=== PATIENT | male | born 1995 | race Caucasian/White ===

== ENCOUNTER 2018-06-20 09:20 | Inpatient (IN) | payer OTHER ==
[2018-06-20 09:35] VITALS: BMI 29.5
--- NOTE | 2018-06-20 10:02 | HP ---
COWS - Scale Resting Pulse: 0= [place] 80 or Below Sweatin= Chills/Flushing Restless Observation: 1= Difficult to Sit Still Pupil Size: 1= Pupils >than Normal Bone or Joint Aches: 2= Severe Diffuse Aches Runny Nose/ Eye Tearin= Runny Nose/Eyes GI Upset > 30mins: 2= Nausea/Diarrhea Tremor Observation: 2= Slight Tremor Visible Yawning Observation: 1= 1-2x During Session Anxiety or Irritability: 2=Irritable/Anxious Goose Flesh Skin: 0=Smooth Skin COWS Score: 14 CIWA Score - Admission Criteria OASAS Guidelines: Admission for Medically Managed Detox: Requires at least one of the followin. CIWA greater than 12 2. Seizures within the past 24 hours 3. Delirium tremens within the past 24 hours 4. Hallucinations within the past 24 hours 5. Acute intervention needed for co occurring medical disorder 6. Acute intervention needed for co occurring psychiatric disorder 7. Severe withdrawal that cannot be handled at a lower level of care (continued vomiting, continued diarrhea, abnormal vital signs) requiring intravenous medication and/or fluids 8. Admission ROS S - HPI Chief Complaint: i need help to stop oxycontin,crack,k2 Allergies/Adverse Reactions: Allergies Allergy/AdvReac Type Severity Reaction Status Date / Time No Known Allergies Allergy Verified 06/20/18 09:54 History of Present Illness: this 23 years old male with oxycontin,crack dependence,k2 dependence,seeking detox,withdrawal symptom,last detox [facility] 04/13 for 7 days,completd, went to rehab [facility] for 2 weeks on suboxone but left the program in 04/13 bipolar disorder,adhd,ptsd non compliance,no medication nicotine dependence longest period of sobriety 3 months Exam Limitations: No Limitations - Ebola screening Have you traveled outside of the country in the last 21 days: No Have you been sick,other than usual withdrawal symptoms: No - Review of Systems Constitutional: Loss of Appetite, Malaise, Night Sweats, Changes in sleep, Weakness EENT: reports: Tearing, Nose Congestion Respiratory: reports: No Symptoms reported Cardiac: reports: No Symptoms Reported GI: reports: Nausea, Poor Appetite, Abdominal cramping : reports: No Symptoms Reported Musculoskeletal: reports: Back Pain, Joint Pain, Muscle Pain Integumentary: reports: Dryness Neuro: reports: Headache, Tremors Endocrine: reports: No Symptoms Reported Hematology: reports: No Symptoms Reported Psychiatric: reports: No Sypmtoms Reported, Judgement Intact, Mood/Affect Appropiate, Orientated x3, other (bipolar disorder,ptsd,adhd) Patient History - Patient Medical History Hx Anemia: No Hx Asthma: No Hx Chronic Obstructive Pulmonary Disease (COPD): No Hx Cancer: No Hx Cardiac Disorders: No Hx Congestive Heart Failure: No Hx Hypertension: No Hx Hypercholesterolemia: No Hx Pacemaker: No HX Cerebrovascular Accident: No Hx Seizures: No Hx Dementia: No Hx Diabetes: No Hx Gastrointestinal Disorders: No Hx Liver Disease: No Hx Genitourinary Disorders: No Hx Sexually Transmitted Disorders: No Hx Renal Disease (ESRD): No Hx Thyroid Disease: No Hx Human Immunodeficiency Virus (HIV): No (last 04/13 negative) Hx Hepatitis C: No Hx Depression: No Hx Suicide Attempt: Yes (overdose at age of 13) Hx Bipolar Disorder: Yes ([place]) Hx Schizophrenia: No Other Medical History: ptsd,no suicidal,no homicidal - Patient Surgical History Past Surgical History: No - PPD History Previous Implant?: No Documented Results: Negative w/o proof Implanted On Prior [facility] Admission?: No PPD to be Administered?: Yes - Smoking Cessation Smoking history: Current every day smoker Have you smoked in the past 12 months: Yes Aproximately how many cigarettes per day: 4 Hx Chewing Tobacco Use: No Initiated information on smoking cessation: Yes 'Breaking Loose' booklet given: 06/20/18 - Substance & Tx. History Hx Alcohol Use: No Hx Substance Use: Yes Substance Use Type: Cocaine, Opiates - Substances Abused Oxycontin Frequency: 3-6 times per week Amount used: 160MG Age of first use: 18 Date of Last Use: 06/18/18 Crack Route: Smoking Frequency: 1-2 times per week Amount used: $60 Age of first use: 20 Date of Last Use: 06/19/18 k2 Route: Smoking Frequency: Daily Amount used: 10$ Age of first use: 13 Date of Last Use: 06/19/18 Family Disease History - Family Disease History Family Disease History: Other: Father (dsa,alcohol,sober), Mother (dsa,lcohol, sober) Admission Physical Exam BHS - Vital Signs Vital Signs: Vital Signs - 24 hr 06/20/18 09:33 Temperature 96.1 F L Pulse Rate 63 Respiratory 18 Rate Blood Pressure 133/83 - Physical General Appearance: Yes: Moderate Distress, Tremorous, Irritable, Sweating, Anxious HEENTM: Yes: Normal ENT Inspection, [place], Pharynx Normal Respiratory: Yes: Within Normal Limits, Lungs Clear, Normal Breath Sounds Neck: Yes: Within Normal Limits, Supple, Trachea in good position Breast: Yes: Within Normal Limits Cardiology: Yes: Within Normal Limits, Regular Rhythm, Regular Rate, S1, S2 Abdominal: Yes: Within Normal Limits, Normal Bowel Sounds, Non Tender, Flat, Soft Genitourinary: Yes: Within Normal Limits Back: Yes: Within Normal Limits, Normal Inspection, CVA Tenderness, Muscle Spasm Musculoskeletal: Yes: full range of Motion, Back pain, Muscle Pain Extremities: Yes: Tremors Neurological: Yes: Within Normal Limits, hem marker II-XII NML intact, Alert, Motor Strength 5/5 Integumentary: Yes: Dry Lymphatic: Yes: Within Normal Limits - Diagnostic (1) Opioid dependence with withdrawal Current Visit: Yes Status: Acute (2) Cocaine dependence Current Visit: Yes Status: Chronic (3) Bipolar disorder Current Visit: Yes Status: Chronic (4) PTSD (post-traumatic stress disorder) Current Visit: Yes Status: Chronic (5) ADHD Current Visit: Yes Status: Chronic (6) Nicotine dependence Current Visit: Yes Status: Chronic Cleared for Admission [facility] - Detox or Rehab [facility] Level of Care: Medically Managed Detox Regimen/Protocol: Methadone [facility] Breath Alcohol Content Breath Alcohol Content: 0 Urine Drug Screen - Results Drug Screen Negative: No Urine Drug Screen Results: PEG-Cocaine, OXY-Oxycodone
[2018-06-20] MEDS ORDERED: METHADONE HCL 10 MG TABLET (FOR DETOX USE ONLY) PO ONE ×2 (10:18→23:00)
[2018-06-20] MEDS ORDERED: ACETAMINOPHEN 325 MG TABLET (FP) PO PRN (10:19)
[2018-06-20] MEDS ORDERED: P-EPHED 60MG/TRIPROLIDI 2.5MG TABLET PO PRN (10:19)
[2018-06-20] MEDS ORDERED: guaiFENesin/D-METHORPHAN HB 10 ML UNIT-DOSE CUPS PO PRN (10:19)
[2018-06-20] MEDS ORDERED: MAGNESIUM HYDROX 2400MG/30ML ORAL SUSPENSION 30 ML CUP PO PRN (10:19)
[2018-06-20] MEDS ORDERED: MAG HYDROX/AL HYDROX/SIMETH 30 ML UNIT-DOSE CUP PO PRN (10:19)
[2018-06-20] MEDS ORDERED: MAGNESIUM CITRATE 300 ML BOTTLE PO PRN (10:19)
[2018-06-20] MEDS ORDERED: MENTHOL/PHENOL 1 EACH UD MM PRN (10:19)
[2018-06-20] MEDS ORDERED: LOPERAMIDE HCL 2 MG CAPSULE PO PRN (10:19)
[2018-06-20] MEDS: diazePAM 5 MG TABLET PO PRN ×3 (11:10→22:20)
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
[2018-06-20] MEDS: IBUPROFEN 400 MG TABLET (FP) PO PRN (16:46)
[2018-06-20 21:08] LABS: URINE APPEARANCE TURBID; URINE BILIRUBIN NEGATIVE (<2.0 mg/dL); URINE COLOR AMBER; URINE GLUCOSE (UA) NEGATIVE (NEGATIVE); URINE KETONE NEGATIVE (NEGATIVE); URINE LEUK ESTERASE NEGATIVE (NEGATIVE); URINE NITRITE NEGATIVE (NEGATIVE); URINE PROTEIN NEGATIVE (NEGATIVE); URINE UROBILINOGEN NEGATIVE mg/dL (0.2-1.0)
[2018-06-20] MEDS: THIAMINE HCL 100 MG TABLET (FP) PO SCH (22:20)
[2018-06-20] MEDS: MELATONIN 5 MG TABLETS PO PRN (22:21)
[2018-06-21] MEDS: hydrOXYzine PAMOATE 50 MG CAPSULE (FP) PO PRN (01:58)
[2018-06-21] MEDS: IBUPROFEN 400 MG TABLET (FP) PO PRN ×2 (02:40→10:10)
[2018-06-21] MEDS: diazePAM 5 MG TABLET PO PRN ×4 (02:41→22:28)
[2018-06-21] MEDS ORDERED: METHADONE HCL 10 MG TABLET (FOR DETOX USE ONLY) PO ONE (10:00)
[2018-06-21] MEDS: PRENATAL VITAMINS W/ FOLIC ACID TABLET (FP) PO SCH (10:11)
[2018-06-21 10:32] LABS: HEMATOCRIT 39.2 % (35.4-49); HEMOGLOBIN 12.6 GM/dL (11.7-16.9); MCH 27.6 pg (25.7-33.7); MEAN CELL VOLUME 86.3 fl (80-96); MEAN PLT VOLUME 9.8 fl (7.5-11.1); PLATELET COUNT 203 K/MM3 (134-434); RBC 4.54 M/mm3 (4.00-5.60); RDW 14.3 % (11.9-15.9); WHITE BLOOD COUNT 5.1 K/mm3 (4.0-10.0)
--- NOTE | 2018-06-21 10:36 | PN ---
S COWS - Scale Resting Pulse: 0= [place] 80 or Below Sweatin= Chills/Flushing Restless Observation: 1= Difficult to Sit Still Pupil Size: 1= Pupils >than Normal Bone or Joint Aches: 2= Severe Diffuse Aches Runny Nose/ Eye Tearin= Runny Nose/Eyes GI Upset > 30mins: 1= Stomach Cramp Tremor Observation of Outstretched Hands: 1= Tremor [place], Not Seen Yawning Observation: 1= 1-2x During Session Anxiety or Irritability: 1=Feels Anxious/Irritable Goose Flesh Skin: 0=Smooth Skin COWS Score: 11 S Progress Note (SOAP) Subjective: sweat tremor constipation anxiety restlessness Objective: 06/21/18 10:42 Vital Signs Temperature 96.4 F L 06/21/18 09:10 Pulse Rate 50 L 06/21/18 09:10 Respiratory Rate 18 06/21/18 09:10 Blood Pressure 98/62 06/21/18 09:10 O2 Sat by Pulse Oximetry (%) Laboratory Last Values WBC 5.1 K/mm3 (4.0-10.0) 06/21/18 07:00 RBC 4.54 M/mm3 (4.00-5.60) 06/21/18 07:00 Hgb 12.6 GM/dL (11.7-16.9) 06/21/18 07:00 Hct 39.2 % (35.4-49) 06/21/18 07:00 MCV 86.3 fl (80-96) 06/21/18 07:00 MCH 27.6 pg (25.7-33.7) 06/21/18 07:00 MCHC 32.0 g/dl (32.0-35.9) 06/21/18 07:00 RDW 14.3 % (11.9-15.9) 06/21/18 07:00 Plt Count 203 K/MM3 (134-434) 06/21/18 07:00 MPV 9.8 fl (7.5-11.1) 06/21/18 07:00 Urine Color Nanda 06/20/18 19:00 Urine Appearance Turbid 06/20/18 19:00 Urine pH 6.0 (5.0-8.0) 06/20/18 19:00 Ur Specific [place] 1.025 (1.010-1.035) 06/20/18 19:00 Urine Protein Negative (NEGATIVE) 06/20/18 19:00 Urine Glucose (UA) Negative (NEGATIVE) 06/20/18 19:00 Urine Ketones Negative (NEGATIVE) 06/20/18 19:00 Urine Blood Negative (NEGATIVE) 06/20/18 19:00 Urine Nitrite Negative (NEGATIVE) 06/20/18 19:00 Urine Bilirubin Negative (<2.0 mg/dL) 06/20/18 19:00 Urine Urobilinogen Negative mg/dL (0.2-1.0) 06/20/18 19:00 Ur Leukocyte Esterase Negative (NEGATIVE) 06/20/18 19:00 lab noted Assessment: 06/21/18 10:42 withdrawal sx Plan: continue detox
--- NOTE | 2018-06-21 11:00 | EKG ---
Test Reason : Blood Pressure : / mmHG Vent. Rate : 069 BPM Atrial Rate : 069 BPM P-R Int : 158 ms QRS Dur : 092 ms QT Int : 414 ms P-R-T Axes : 037 037 034 degrees QTc Int : 443 ms NORMAL SINUS RHYTHM NORMAL ECG NO PREVIOUS ECGS AVAILABLE Confirmed by GORGE BIRD, ELLEN ([id number]) on 06/21/2018 11:00:31 AM Referred By: Akilah Mercado Confirmed By:ELLEN PENNINGTON MD
[2018-06-21 11:11] LABS: ALBUMIN 3.4 g/dl (3.4-5.0); ALK PHOS 95 U/L (45-117); ANION GAP 7 MMOL/L (8-16); BILIRUBIN,TOTAL 0.2 mg/dL (0.2-1); BLOOD UREA NITROGEN 14 mg/dL (7-18); CALCIUM 8.5 mg/dL (8.5-10.1); CHLORIDE 103 mmol/L (98-107); CO2 30 mmol/L (21-32); CREATININE 0.8 mg/dL (0.55-1.3); GLUCOSE,RANDOM 95 mg/dL (74-106); POTASSIUM 4.1 mmol/L (3.5-5.1); SGOT/AST 20 U/L (15-37); SGPT/ALT 28 U/L (13-61); SODIUM 141 mmol/L (136-145); TOT PROT 6.2 g/dl (6.4-8.2)
[2018-06-21] MEDS: GABAPENTIN 300 MG CAPSULE (FP) PO SCH ×2 (15:02→22:28)
[2018-06-21] MEDS: THIAMINE HCL 100 MG TABLET (FP) PO SCH (22:28)
[2018-06-21] MEDS: MELATONIN 5 MG TABLETS PO PRN (22:29)
[2018-06-22] MEDS: GABAPENTIN 300 MG CAPSULE (FP) PO SCH ×3 (05:50→22:10)
[2018-06-22] MEDS: diazePAM 5 MG TABLET PO PRN ×5 (05:50→22:10)
[2018-06-22] MEDS: IBUPROFEN 400 MG TABLET (FP) PO PRN ×3 (05:59→22:11)
[2018-06-22] MEDS ORDERED: METHADONE HCL 5 MG TABLET (FOR DETOX USE ONLY) PO ONE (10:00)
[2018-06-22] MEDS: PRENATAL VITAMINS W/ FOLIC ACID TABLET (FP) PO SCH (10:08)
--- NOTE | 2018-06-22 14:19 | PN ---
BHS COWS - Scale Resting Pulse: 1= [place] 81-100 Sweatin= Chills/Flushing Restless Observation: 3= Extraneous Movement Pupil Size: 0= Normal to Room Light Bone or Joint Aches: 2= Severe Diffuse Aches Runny Nose/ Eye Tearin= Runny Nose/Eyes GI Upset > 30mins: 3= Vomiting/Diarrhea Tremor Observation of Outstretched Hands: 2= Slight Tremor Visible Yawning Observation: 0= None Anxiety or Irritability: 2=Irritable/Anxious Goose Flesh Skin: 0=Smooth Skin COWS Score: 16 BHS Progress Note (SOAP) Subjective: Chills, sweating, interrupted sleep, irritable Objective: 06/22/18 14:05 Last Vital Signs Temp Pulse Resp BP Pulse Ox 96.4 F L 81 18 129/76 06/22/18 13:11 06/22/18 13:11 06/22/18 13:11 06/22/18 13:11 Laboratory Tests 06/20/18 06/21/18 06/21/18 19:00 07:00 07:00 WBC 5.1 RBC 4.54 Hgb 12.6 Hct 39.2 MCV 86.3 MCH 27.6 MCHC 32.0 RDW 14.3 Plt Count 203 MPV 9.8 Sodium Potassium Chloride Carbon Dioxide Anion Gap BUN Creatinine Creat Clearance w eGFR Random Glucose Calcium Total Bilirubin AST ALT Alkaline Phosphatase Total Protein Albumin Urine Color Nanda Urine Appearance Turbid Urine pH 6.0 Ur Specific [place] 1.025 Urine Protein Negative Urine Glucose (UA) Negative Urine Ketones Negative Urine Blood Negative Urine Nitrite Negative Urine Bilirubin Negative Urine Urobilinogen Negative Ur Leukocyte Esterase Negative RPR Titer HIV 1&2 Antibody Screen Negative HIV P24 Antigen Negative 06/21/18 06/21/18 07:00 07:00 WBC RBC Hgb Hct MCV MCH MCHC RDW Plt Count MPV Sodium 141 Potassium 4.1 Chloride 103 Carbon Dioxide 30 Anion Gap 7 L BUN 14 Creatinine 0.8 Creat Clearance w eGFR > 60 Random Glucose 95 Calcium 8.5 Total Bilirubin 0.2 AST 20 ALT 28 Alkaline Phosphatase 95 Total Protein 6.2 L Albumin 3.4 Urine Color Urine Appearance Urine pH Ur Specific [place] Urine Protein Urine Glucose (UA) Urine Ketones Urine Blood Urine Nitrite Urine Bilirubin Urine Urobilinogen Ur Leukocyte Esterase RPR Titer Nonreactive HIV 1&2 Antibody Screen HIV P24 Antigen Labs reviewed Assessment: 06/22/18 14:19 Withdrawal symptoms Plan: Continue detox Encouraged PO water intake
[2018-06-22] MEDS: THIAMINE HCL 100 MG TABLET (FP) PO SCH (22:10)
[2018-06-22] MEDS: MELATONIN 5 MG TABLETS PO PRN (22:11)
[2018-06-23] MEDS: diazePAM 5 MG TABLET PO PRN ×2 (02:15→09:34)
[2018-06-23] MEDS: GABAPENTIN 300 MG CAPSULE (FP) PO SCH ×3 (05:40→22:19)
--- NOTE | 2018-06-23 09:06 | PN ---
BHS Progress Note (SOAP) Subjective: anxiety restlessness body ache joints pain patient reported that he has long history of anxiety and requested taking valuim or clonipine regularly the purpose and procedure of opiate detox explained and risks of continue opiate misuse opitions of methadone or suboxone maintenance program that the patient was on suboxone program by history discuss negative consequences of valium misuse Objective: 06/23/18 09:05 Vital Signs Temperature 96.8 F L 06/23/18 06:11 Pulse Rate 74 06/23/18 06:11 Respiratory Rate 18 06/23/18 06:30 Blood Pressure 120/58 L 06/23/18 06:11 O2 Sat by Pulse Oximetry (%) Laboratory Last Values WBC 5.1 K/mm3 (4.0-10.0) 06/21/18 07:00 RBC 4.54 M/mm3 (4.00-5.60) 06/21/18 07:00 Hgb 12.6 GM/dL (11.7-16.9) 06/21/18 07:00 Hct 39.2 % (35.4-49) 06/21/18 07:00 MCV 86.3 fl (80-96) 06/21/18 07:00 MCH 27.6 pg (25.7-33.7) 06/21/18 07:00 MCHC 32.0 g/dl (32.0-35.9) 06/21/18 07:00 RDW 14.3 % (11.9-15.9) 06/21/18 07:00 Plt Count 203 K/MM3 (134-434) 06/21/18 07:00 MPV 9.8 fl (7.5-11.1) 06/21/18 07:00 Sodium 141 mmol/L (136-145) 06/21/18 07:00 Potassium 4.1 mmol/L (3.5-5.1) 06/21/18 07:00 Chloride 103 mmol/L (98-107) 06/21/18 07:00 Carbon Dioxide 30 mmol/L (21-32) 06/21/18 07:00 Anion Gap 7 MMOL/L (8-16) L 06/21/18 07:00 BUN 14 mg/dL (7-18) 06/21/18 07:00 Creatinine 0.8 mg/dL (0.55-1.3) 06/21/18 07:00 Creat Clearance w eGFR > 60 (>60) 06/21/18 07:00 Random Glucose 95 mg/dL (74-106) 06/21/18 07:00 Calcium 8.5 mg/dL (8.5-10.1) 06/21/18 07:00 Total Bilirubin 0.2 mg/dL (0.2-1) 06/21/18 07:00 AST 20 U/L (15-37) 06/21/18 07:00 ALT 28 U/L (13-61) 06/21/18 07:00 Alkaline Phosphatase 95 U/L (45-117) 06/21/18 07:00 Total Protein 6.2 g/dl (6.4-8.2) L 06/21/18 07:00 Albumin 3.4 g/dl (3.4-5.0) 06/21/18 07:00 Urine Color Nanda 06/20/18 19:00 Urine Appearance Turbid 06/20/18 19:00 Urine pH 6.0 (5.0-8.0) 06/20/18 19:00 Ur Specific [place] 1.025 (1.010-1.035) 06/20/18 19:00 Urine Protein Negative (NEGATIVE) 06/20/18 19:00 Urine Glucose (UA) Negative (NEGATIVE) 06/20/18 19:00 Urine Ketones Negative (NEGATIVE) 06/20/18 19:00 Urine Blood Negative (NEGATIVE) 06/20/18 19:00 Urine Nitrite Negative (NEGATIVE) 06/20/18 19:00 Urine Bilirubin Negative (<2.0 mg/dL) 06/20/18 19:00 Urine Urobilinogen Negative mg/dL (0.2-1.0) 06/20/18 19:00 Ur Leukocyte Esterase Negative (NEGATIVE) 06/20/18 19:00 RPR Titer Nonreactive (NONREACTIVE) 06/21/18 07:00 HIV 1&2 Antibody Screen Negative 06/21/18 07:00 HIV P24 Antigen Negative 06/21/18 07:00 lab noted Assessment: 06/23/18 09:06 withdrawal sx psychiatric referral for anxiety 06/23/18 09:06 "vistaril does do shit" patient stated that no valium prescription is "not professionalism" emotional support givven 06/23/18 09:06 Plan: continue detox
[2018-06-23] MEDS: IBUPROFEN 400 MG TABLET (FP) PO PRN (09:33)
[2018-06-23] MEDS ORDERED: METHADONE HCL 5 MG TABLET (FOR DETOX USE ONLY) PO ONE (10:00)
[2018-06-23] MEDS: PRENATAL VITAMINS W/ FOLIC ACID TABLET (FP) PO SCH (10:29)
[2018-06-23] MEDS: hydrOXYzine PAMOATE 50 MG CAPSULE (FP) PO PRN ×2 (14:29→22:19)
[2018-06-23] MEDS: MELATONIN 5 MG TABLETS PO PRN (22:19)
[2018-06-23] MEDS: THIAMINE HCL 100 MG TABLET (FP) PO SCH (22:19)
[2018-06-24] MEDS: GABAPENTIN 300 MG CAPSULE (FP) PO SCH ×3 (07:20→22:24)
[2018-06-24] MEDS ORDERED: METHADONE HCL 10 MG TABLET (FOR DETOX USE ONLY) PO ONE (10:00)
[2018-06-24] MEDS: hydrOXYzine PAMOATE 50 MG CAPSULE (FP) PO PRN ×3 (10:09→22:24)
[2018-06-24] MEDS: PRENATAL VITAMINS W/ FOLIC ACID TABLET (FP) PO SCH (10:09)
--- NOTE | 2018-06-24 11:01 | PN ---
[facility] Progress Note Note: PATIENT C/O ANXIETY, SLEEP DISTURBANCE AND IRRITABILITY. Laboratory Tests 06/20/18 06/21/18 06/21/18 19:00 07:00 07:00 WBC 5.1 RBC 4.54 Hgb 12.6 Hct 39.2 MCV 86.3 MCH 27.6 MCHC 32.0 RDW 14.3 Plt Count 203 MPV 9.8 Sodium Potassium Chloride Carbon Dioxide Anion Gap BUN Creatinine Creat Clearance w eGFR Random Glucose Calcium Total Bilirubin AST ALT Alkaline Phosphatase Total Protein Albumin Urine Color Nanda Urine Appearance Turbid Urine pH 6.0 Ur Specific [place] 1.025 Urine Protein Negative Urine Glucose (UA) Negative Urine Ketones Negative Urine Blood Negative Urine Nitrite Negative Urine Bilirubin Negative Urine Urobilinogen Negative Ur Leukocyte Esterase Negative RPR Titer HIV 1&2 Antibody Screen Negative HIV P24 Antigen Negative 06/21/18 06/21/18 07:00 07:00 WBC RBC Hgb Hct MCV MCH MCHC RDW Plt Count MPV Sodium 141 Potassium 4.1 Chloride 103 Carbon Dioxide 30 Anion Gap 7 L BUN 14 Creatinine 0.8 Creat Clearance w eGFR > 60 Random Glucose 95 Calcium 8.5 Total Bilirubin 0.2 AST 20 ALT 28 Alkaline Phosphatase 95 Total Protein 6.2 L Albumin 3.4 Urine Color Urine Appearance Urine pH Ur Specific [place] Urine Protein Urine Glucose (UA) Urine Ketones Urine Blood Urine Nitrite Urine Bilirubin Urine Urobilinogen Ur Leukocyte Esterase RPR Titer Nonreactive HIV 1&2 Antibody Screen HIV P24 Antigen Vital Signs Temperature 96.9 F L 06/24/18 09:30 Pulse Rate 64 06/24/18 09:30 Respiratory Rate 18 06/24/18 09:30 Blood Pressure 118/65 06/24/18 09:30 O2 Sat by Pulse Oximetry (%) PE; ALERT AND ORIENTED X 3 SKIN WARM AND DRY EXT FULL ROM, NO EDEMA AMB AD JARAD ANXIOUS, EASILY AGITATED WITHDRAWAL SX CONTINUE DETOX FOR D/C IN AM MONITOR CLINICALLY
[2018-06-24] MEDS: AMMONIUM LACTATE 12% LOTION 225 GM BOTTLE TP SCH ×2 (14:22→22:25)
[2018-06-24] MEDS: THIAMINE HCL 100 MG TABLET (FP) PO SCH (22:24)
[2018-06-24] MEDS: MELATONIN 5 MG TABLETS PO PRN (22:24)
[2018-06-25] MEDS: GABAPENTIN 300 MG CAPSULE (FP) PO SCH ×2 (05:27→14:19)
[2018-06-25] MEDS: hydrOXYzine PAMOATE 50 MG CAPSULE (FP) PO PRN (05:28)
[2018-06-25] MEDS ORDERED: METHADONE HCL 5 MG TABLET (FOR DETOX USE ONLY) PO ONE (06:00)
[2018-06-25] MEDS: PRENATAL VITAMINS W/ FOLIC ACID TABLET (FP) PO SCH (10:24)
[2018-06-25] MEDS: AMMONIUM LACTATE 12% LOTION 225 GM BOTTLE TP SCH (10:24)
--- NOTE | 2018-06-25 11:57 | DS ---
[facility] Detox Discharge Summary Admission Date: 06/20/18 Discharge Date: 06/25/18 - History Present History: Opioid Dependence - Physical Exam Results Vital Signs: Vital Signs Temperature 97.6 F 06/25/18 10:08 Pulse Rate 77 06/25/18 10:08 Respiratory Rate 19 06/25/18 10:08 Blood Pressure 130/72 06/25/18 10:08 O2 Sat by Pulse Oximetry (%) Pertinent Admission Physical Exam Findings: PATIENT COMPLETED DETOX REGIMEN WITHOUT ADVERSE EVENT. PATIENT ALERT AND ORIENTED X 3. MEDICALLY STABLE. DENIES SI/HI. PATIENT ACCEPTED REHAB REFERRAL TO [facility]. ENCOURAGED TO COMPLETE REHAB TO PREVENT RELAPSE. D/C INSTRUCTIONS PROVIDED TO PATIENT BY STAFF. - Treatment Hospital Course: Detox Protocol Followed, Detoxed Safely, Responded well, Discharged Condition Good, Rehab Referral Accepted Patient has Accepted a Rehab Referral to: [facility] - Medication Discharge Medications: Ambulatory Orders Gabapentin 300 mg PO TID 06/20/18 - Diagnosis (1) Opioid dependence with withdrawal Current Visit: Yes Status: Resolved - AMA Did Patient Leave Against Medical Advice: No
[2018-06-25 13:46] VITALS: BP 136/80; PULSE 74; TEMP 96.6
== END 2018-06-25 14:25 | disposition other institution (70) | DRG 897 ==
LOC: YASAS 09:20 → Y3N 10:33
PROVIDERS: ADMIT Neuromusculoskeletal Medicine & OMM; ATTEND Neuromusculoskeletal Medicine & OMM
PROC: HZ2ZZZZ Detoxification Services for Substance Abuse Treatment (ICD-10-PCS; principal; 2018-06-20)
DX: F11.23 Opioid dependence with withdrawal (principal); F14.20 Cocaine dependence, uncomplicated; F17.210 Nicotine dependence, cigarettes, uncomplicated; F90.9 Attention-deficit hyperactivity disorder, unspecified type; F31.9 Bipolar disorder, unspecified; F43.10 Post-traumatic stress disorder, unspecified; Z91.5 Personal history of self-harm; Z59.0 Homelessness
CPT/HCPCS: 36415; 80053; 81003; 85027; 86593; 87389; 93005; 93010

== ENCOUNTER 2018-06-25 14:34 | Inpatient (IN) | payer OTHER ==
[2018-06-25 15:01] VITALS: BMI 30.8
[2018-06-25] MEDS ORDERED: MAGNESIUM CITRATE 300 ML BOTTLE PO PRN (15:01)
[2018-06-25] MEDS ORDERED: ACETAMINOPHEN 325 MG TABLET (FP) PO PRN (15:01)
[2018-06-25] MEDS ORDERED: P-EPHED 60MG/TRIPROLIDI 2.5MG TABLET PO PRN (15:01)
[2018-06-25] MEDS ORDERED: MAG HYDROX/AL HYDROX/SIMETH 30 ML UNIT-DOSE CUP PO PRN (15:01)
[2018-06-25] MEDS ORDERED: guaiFENesin/D-METHORPHAN HB 10 ML UNIT-DOSE CUPS PO PRN (15:01)
[2018-06-25] MEDS ORDERED: LOPERAMIDE HCL 2 MG CAPSULE PO PRN (15:01)
--- NOTE | 2018-06-25 15:02 | HP ---
[facility] Assess/Revision - Admission History Admitted to Rehab from: [facility] - Vital signs Vital Signs: Vital Signs Period Temp Pulse Resp BP Sys/Otto Pulse Ox Last 24 Hr 98.0 F 78 20 148/80 - Findings Detox History & Physical reviewed: Yes Concur with findings: Yes Inpatient Rehab Admission - Initial Determination Are CD services needed?: Yes Free of communicable disease: Yes Not in need of hospitalization: Yes - Rehab Admission Criteria Poor recovery environment: Yes Comorbidities: Yes Lacks judgement: No Patient is meeting Inpatient Rehab admission criteria:: Yes
[2018-06-25] MEDS: hydrOXYzine PAMOATE 50 MG CAPSULE (FP) PO PRN ×2 (15:28→22:27)
[2018-06-25] MEDS: MAGNESIUM HYDROX 2400MG/30ML ORAL SUSPENSION 30 ML CUP PO PRN (15:29)
[2018-06-25] MEDS: THIAMINE HCL 100 MG TABLET (FP) PO SCH (22:16)
[2018-06-25] MEDS: GABAPENTIN 300 MG CAPSULE (FP) PO SCH (22:16)
[2018-06-25] MEDS: MELATONIN 5 MG TABLETS PO PRN (22:26)
[2018-06-25] MEDS ORDERED: THIAMINE HCL 100 MG TABLET (FP) PO ONE (23:00)
[2018-06-25] MEDS ORDERED: GABAPENTIN 300 MG CAPSULE (FP) PO ONE (23:00)
[2018-06-26] MEDS: GABAPENTIN 300 MG CAPSULE (FP) PO SCH ×3 (06:32→21:47)
[2018-06-26] MEDS: IBUPROFEN 400 MG TABLET (FP) PO PRN ×2 (06:33→14:28)
[2018-06-26] MEDS: MENTHOL/PHENOL 1 EACH UD MM PRN ×3 (06:34→21:50)
[2018-06-26] MEDS: PRENATAL VITAMINS W/ FOLIC ACID TABLET (FP) PO SCH (10:09)
[2018-06-26] MEDS: hydrOXYzine PAMOATE 50 MG CAPSULE (FP) PO PRN ×3 (10:10→21:48)
[2018-06-26] MEDS: THIAMINE HCL 100 MG TABLET (FP) PO SCH (21:47)
[2018-06-26] MEDS: MELATONIN 5 MG TABLETS PO PRN (21:48)
[2018-06-27] MEDS: hydrOXYzine PAMOATE 50 MG CAPSULE (FP) PO PRN ×3 (04:13→21:38)
[2018-06-27] MEDS: GABAPENTIN 300 MG CAPSULE (FP) PO SCH ×3 (06:31→21:38)
[2018-06-27] MEDS: IBUPROFEN 400 MG TABLET (FP) PO PRN ×2 (06:34→21:38)
[2018-06-27] MEDS: MENTHOL/PHENOL 1 EACH UD MM PRN ×2 (06:34→21:40)
[2018-06-27] MEDS: PRENATAL VITAMINS W/ FOLIC ACID TABLET (FP) PO SCH (10:24)
[2018-06-27] MEDS: THIAMINE HCL 100 MG TABLET (FP) PO SCH (21:38)
[2018-06-27] MEDS: MELATONIN 5 MG TABLETS PO PRN (21:38)
[2018-06-28] MEDS: hydrOXYzine PAMOATE 50 MG CAPSULE (FP) PO PRN ×3 (03:23→21:46)
[2018-06-28] MEDS: GABAPENTIN 300 MG CAPSULE (FP) PO SCH ×3 (06:32→21:44)
[2018-06-28] MEDS: IBUPROFEN 400 MG TABLET (FP) PO PRN ×2 (06:32→21:45)
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
[2018-06-28] MEDS ORDERED: MELATONIN 5 MG TABLETS PO PRN (10:23)
[2018-06-28] MEDS: PRENATAL VITAMINS W/ FOLIC ACID TABLET (FP) PO SCH (11:10)
[2018-06-28] MEDS: MENTHOL/PHENOL 1 EACH UD MM PRN ×2 (15:47→21:46)
[2018-06-28] MEDS: THIAMINE HCL 100 MG TABLET (FP) PO SCH (21:44)
[2018-06-29] MEDS: hydrOXYzine PAMOATE 50 MG CAPSULE (FP) PO PRN ×4 (02:11→21:56)
[2018-06-29] MEDS: GABAPENTIN 300 MG CAPSULE (FP) PO SCH ×3 (06:15→21:53)
[2018-06-29] MEDS: IBUPROFEN 400 MG TABLET (FP) PO PRN ×2 (06:15→17:56)
[2018-06-29] MEDS: PRENATAL VITAMINS W/ FOLIC ACID TABLET (FP) PO SCH (10:32)
[2018-06-29] MEDS: MENTHOL/PHENOL 1 EACH UD MM PRN ×2 (10:33→21:57)
[2018-06-29] MEDS: MAGNESIUM HYDROX 2400MG/30ML ORAL SUSPENSION 30 ML CUP PO PRN (13:13)
[2018-06-29] MEDS: THIAMINE HCL 100 MG TABLET (FP) PO SCH (21:53)
[2018-06-29] MEDS: MELATONIN 5 MG, MELATONIN 3 MG PO PRN (21:55)
[2018-06-30] MEDS: IBUPROFEN 400 MG TABLET (FP) PO PRN ×2 (03:05→17:42)
[2018-06-30] MEDS: hydrOXYzine PAMOATE 50 MG CAPSULE (FP) PO PRN ×4 (03:05→22:28)
[2018-06-30] MEDS: GABAPENTIN 300 MG CAPSULE (FP) PO SCH ×3 (06:21→21:34)
[2018-06-30] MEDS: MENTHOL/PHENOL 1 EACH UD MM PRN ×2 (11:24→21:38)
[2018-06-30] MEDS: PRENATAL VITAMINS W/ FOLIC ACID TABLET (FP) PO SCH (11:24)
[2018-06-30] MEDS: THIAMINE HCL 100 MG TABLET (FP) PO SCH (21:34)
[2018-06-30] MEDS: MELATONIN 5 MG, MELATONIN 3 MG PO PRN (21:38)
[2018-07-01] MEDS: GABAPENTIN 300 MG CAPSULE (FP) PO SCH ×2 (06:41→14:10)
[2018-07-01] MEDS: hydrOXYzine PAMOATE 50 MG CAPSULE (FP) PO PRN ×3 (06:42→14:48)
[2018-07-01 07:13] VITALS: BP 123/63; PULSE 55; TEMP 97.5
[2018-07-01] MEDS: PRENATAL VITAMINS W/ FOLIC ACID TABLET (FP) PO SCH (10:35)
[2018-07-01] MEDS: MENTHOL/PHENOL 1 EACH UD MM PRN (12:52)
[2018-07-01] MEDS: IBUPROFEN 400 MG TABLET (FP) PO PRN (12:53)
--- NOTE | 2018-07-01 14:29 | PN ---
[facility] Progress Note Note: Psychiatric nurse practitioner: Patient signing out of rehab. States he is not satisfied with his roomate and now wants to go home. Patient encouraged to continue with the program but is focused on leaving. Patient signing out of rehab today.
== END 2018-07-01 15:00 | disposition left against medical advice (07) | DRG 894 ==
LOC: YASAS 14:34 → Y5N 14:35
PROVIDERS: ADMIT Psychiatry & Neurology Psychiatry; ATTEND Psychiatry & Neurology Psychiatry
PROC: HZ42ZZZ Group Counseling for Substance Abuse Treatment, Cognitive-Behavioral (ICD-10-PCS; principal; 2018-06-25)
DX: F11.20 Opioid dependence, uncomplicated (principal); F14.20 Cocaine dependence, uncomplicated; F19.282 Other psychoactive substance dependence with psychoactive substance-induced sleep disorder; F12.20 Cannabis dependence, uncomplicated; F17.210 Nicotine dependence, cigarettes, uncomplicated; F43.10 Post-traumatic stress disorder, unspecified; F90.9 Attention-deficit hyperactivity disorder, unspecified type; Z91.5 Personal history of self-harm; Z59.0 Homelessness; M75.91 Shoulder lesion, unspecified, right shoulder